=== PATIENT | male | born 1965 | race Caucasian/White ===

== ENCOUNTER → 2021-10-02 | Outpatient (CLI) | payer BC ==
[~2021-10-02] MED LIST: CETI10TA4 PO; MELO15TA28 PO
== END ==
LOC: M LABSMTC 10:46
PROVIDERS: ATTEND Anesthesiology
DX: Z01.812 Encounter for preprocedural laboratory examination (principal); Z20.822 Contact with and (suspected) exposure to COVID-19

== ENCOUNTER 2021-10-07 10:16 | Day surgery (SDC) | payer BC ==
[~2021-10-07] VITALS: Ht 182.9 cm; Wt 101.2 kg
[~2021-10-07 10:16] MED LIST changes: +NS 1,000 ML IV ONE
[2021-10-07] MEDS ORDERED: LIDOCAINE 2% 100MG/5ML SDV (FOR ANES.) As Ordered ONE (11:02)
[2021-10-07] MEDS ORDERED: propofoL 200 MG/20 ML VIAL As Ordered ONE (11:02)
== END 2021-10-07 12:45 | disposition home or self-care (01) ==
LOC: M OPP 10:16
PROVIDERS: ATTEND Surgery
DX: Z12.11 Encounter for screening for malignant neoplasm of colon (principal); K64.0 First degree hemorrhoids; E80.4 Gilbert syndrome; Z79.899 Other long term (current) drug therapy